=== PATIENT | male | born 1940 | race Caucasian/White ===

== ENCOUNTER 2021-10-25 23:24 | Emergency (ER) | payer MEDICARE ==
[~2021-10-25] VITALS: Ht 172.7 cm; Wt 68.0 kg
[2021-10-26 09:15] VITALS: BP 156/69
== END 2021-10-26 09:24 | disposition home or self-care (01) ==
LOC: EDBD 23:24 → ER 23:24
DX: F03.90 Unspecified dementia, unspecified severity, without behavioral disturbance, psychotic disturbance, mood disturbance, and anxiety (principal); I10 Essential (primary) hypertension; Z85.118 Personal history of other malignant neoplasm of bronchus and lung
CPT/HCPCS: 82962